=== PATIENT | male | born 1990 | race Caucasian/White ===

== ENCOUNTER 2025-09-05 08:55 | Outpatient (CLI) | payer OTHER ==
[~2025-09-05] VITALS: Ht 181 cm; Wt 115.7 kg
[2025-09-05] MEDS: albuterol 2.5 MG/3 ML nebule NEB ONE (09:27)
[2025-09-05 09:29] VITALS: PULSE 82; RESP 16; O2SAT 97
[2025-09-05 09:42] VITALS: PULSE 94; RESP 16
--- NOTE | 2025-09-05 11:37 | RADIOLOGY REPORT ---
DI CHEST,TWO VIEWS CLINICAL HISTORY: SHORTNESS OF BREATH COMPARISON: None TECHNIQUE: Frontal and lateral view of the chest was obtained FINDINGS: Lines and Tubes: None Lungs: No focal consolidation. Pleura: No effusion. No pneumothorax. Cardiomediastinal contours: Unremarkable Bones: No acute osseous abnormality. IMPRESSION: No acute cardiopulmonary disease.
--- NOTE | 2025-09-05 16:23 | PROCEDURE NOTE - Respiratory ---
Procedure Note-Respiratory Providers to CC Copies To 1: NAYELY DENISE DO Procedure Name: This is a spirometry study dated September 05, 2025. The spirometry study was performed both before and after inhaled bronchodilator. Spirometry measurements: Both the forced vital capacity and the FEV1 are normal. The FEV1 ratio is normal. The flow rates measurements are normal. After inhaled bronchodilator there is no appreciable change in the flow volume curve. Conclusion: Normal spirometry study. We have no previous studies for comparison. SHREE LYNN MD Sep 05, 2025 16:23
== END 2025-09-05 23:59 | disposition home or self-care (01) ==
LOC: RT 08:55
PROVIDERS: ATTEND Chiropractor
DX: R06.02 Shortness of breath (principal)
CPT/HCPCS: 71046; 94060; 94760